=== PATIENT | male | born 1995 | race Caucasian/White ===

== ENCOUNTER 2017-08-23 07:58 | Emergency (ER) | payer MEDICAID ==
[~2017-08-23] VITALS: Ht 177.8 cm; Wt 63.5 kg
[2017-08-23 08:25] VITALS: BP_SYST 131
--- NOTE | 2017-08-23 08:25 | NUR ---
Patient to ER bed 4 to gown for evaluation. Side rails up. Report received from GREGORY Silver
--- NOTE | 2017-08-23 08:29 | NUR ---
Pt complains of right 5th digit pain for one week. Pt states he hit his finger but unsure with what and there was a bubble on his cuticle. Per pt, bubble popped and had some drainage. Pain per pt is 3/10. Pt denies fever. Noted erythema around cuticle; no discharge noted. Pt is AAO x 4 and ambulatory. No other injuries/complaints per patient or noted.
--- NOTE | 2017-08-23 08:46 | NUR ---
ER Dr. Alfaro at bedside examining patient.
[2017-08-23 09:25] VITALS: BP_SYST 131
--- NOTE | 2017-08-23 09:25 | NUR ---
Patient given written and verbal discharge instructions and verbalizes understanding. ER MD discussed with patient the results and treatment provided. Patient in stable condition. ID arm band removed. Rx of Keflex and Tylenol given. Patient educated on pain management and to follow up with PMD. Pain Scale 3. Dr. Alfaro aware, prescription sent home. Opportunity for questions provided and answered. Medication side effect fact sheet provided.
== END 2017-08-23 09:25 | disposition home or self-care (01) ==
LOC: SED 07:58
DX: L03.011 Cellulitis of right finger (principal); F12.10 Cannabis abuse, uncomplicated; F17.200 Nicotine dependence, unspecified, uncomplicated
CPT/HCPCS: 99283